=== PATIENT | female | born 1995 | race Caucasian/White ===

== ENCOUNTER 2017-03-02 09:31 | Emergency (ER) | payer OTHER ==
[~2017-03-02] VITALS: Ht 165.1 cm; Wt 95.2 kg
[2017-03-02 09:33] VITALS: BP 151/90
[2017-03-02] MEDS ORDERED: ADDE1TAB14 PO (09:57)
[2017-03-02] MEDS ORDERED: AMOX500C PO (10:20)
[2017-03-02] MEDS ORDERED: NORCOTAB PO (10:20)
[2017-03-02] MEDS ORDERED: AMOXICILLIN 500 MG CAP PO ONE (10:30)
[2017-03-02] MEDS ORDERED: NORCO, ANEXSIA 5/325MG TABLET (HYDROcodone/ACETAMINOPHEN) PO ONE (10:30)
== END 2017-03-02 10:38 | disposition home or self-care (01) ==
LOC: M ED 09:31
DX: K02.9 Dental caries, unspecified (principal); K08.89 Other specified disorders of teeth and supporting structures; K13.79 Other lesions of oral mucosa; F90.0 Attention-deficit hyperactivity disorder, predominantly inattentive type; Z79.899 Other long term (current) drug therapy